=== PATIENT | female | born 1945 | race Caucasian/White ===

== ENCOUNTER 2020-04-08 11:34 | Outpatient (CLI) | payer MEDICARE | END 2020-04-08 23:59 | disposition home or self-care (01) | LOC: CFH 11:34 | PROVIDERS: ATTEND Family Medicine | DX: M81.0 Age-related osteoporosis without current pathological fracture (principal) | CPT/HCPCS: 77080 ==

== ENCOUNTER → 2020-07-03 | Outpatient (CLI) | payer MEDICARE ==
[~2020-07-03] MED LIST: ALEN70TA3 PO; CYCL5.5D EACHEYE
== END | disposition home or self-care (01) ==
LOC: STAR 15:06
PROVIDERS: ATTEND Obstetrics & Gynecology Gynecology
DX: Z01.812 Encounter for preprocedural laboratory examination (principal); N95.8 Other specified menopausal and perimenopausal disorders; Z20.828 Contact with and (suspected) exposure to other viral communicable diseases
CPT/HCPCS: 36415; 87635; 93005

== ENCOUNTER 2020-07-08 05:19 | Day surgery (SDC) | payer MEDICARE ==
[~2020-07-08] VITALS: Ht 157.5 cm; Wt 47.2 kg
[2020-07-08] MEDS ORDERED: BUPIVACAINE/PF 0.25% ONE (06:17)
[2020-07-08 06:19] VITALS: BP 156/89
[2020-07-08] MEDS ORDERED: CHLORHEXIDINE 15 ML UDC MM ONE (06:30)
[2020-07-08] MEDS ORDERED: LACTATED RINGERS 1,000 ML IV SCH (06:30)
[2020-07-08] MEDS ORDERED: FENTANYL PF 100 MCG/2ML ONE ×2 (06:38→07:58)
[2020-07-08] MEDS ORDERED: PROPOFOL 50 ML ONE (06:38)
[2020-07-08] MEDS ORDERED: MIDAZOLAM 1 MG/ML, 2ML ONE ×2 (06:38→09:17)
[2020-07-08] MEDS ORDERED: ACETAMINOPHEN 325 MG TABLET PO PRN (07:30)
[2020-07-08] MEDS ORDERED: LORazepam 2 MG/ML, 1ML IVPush PRN (07:30)
[2020-07-08] MEDS ORDERED: HALOPERIDOL 5 MG/ML IV PRN (07:30)
[2020-07-08] MEDS ORDERED: ONDANSETRON 2MG/ML, 2ML IVPush PRN (07:30)
[2020-07-08] MEDS ORDERED: FENTANYL PF 100 MCG/2ML IV PRN (07:30)
[2020-07-08] MEDS ORDERED: MEPERIDINE/PF 25MG/0.5ML IVPush PRN (07:30)
[2020-07-08] MEDS ORDERED: HYDROmorphone 1 MG/ML, 1ML INJ IVPush PRN (07:30)
[2020-07-08] MEDS ORDERED: OXYcodone 5 MG/5 ML ORAL.SOL UDC PO PRN (07:30)
[2020-07-08] MEDS ORDERED: PROMETHAZINE 12.5 MG SUPP PR PRN (07:30)
[2020-07-08] MEDS ORDERED: LABETALOL 5MG/ML, 20ML IV PRN (07:30)
[2020-07-08] MEDS ORDERED: hydrALAzine 20 MG/ML, 1ML IV PRN (07:30)
[2020-07-08] MEDS ORDERED: METHOCARBAMOL 1,000 MG in DEXTROSE 5% 100 ML IV PRN (07:30)
[2020-07-08] MEDS ORDERED: EPHEDRINE 50 MG/ML, 1ML IVPush PRN (07:30)
[2020-07-08] MEDS ORDERED: ACETAMINOPHEN 650 MG/20.3 ML UDC ONE (08:07)
[2020-07-08] MEDS ORDERED: ONDANSETRON 2MG/ML, 2ML ONE (08:08)
[2020-07-08] MEDS ORDERED: DEXAMETHASONE 4 MG/ML, 1ML ONE (08:08)
== END 2020-07-08 10:10 | disposition home or self-care (01) ==
LOC: OUT 05:19
PROVIDERS: ATTEND Obstetrics & Gynecology Gynecology
DX: N95.0 Postmenopausal bleeding (principal); N88.2 Stricture and stenosis of cervix uteri; M81.0 Age-related osteoporosis without current pathological fracture; Z79.899 Other long term (current) drug therapy; Z72.89 Other problems related to lifestyle; Z87.891 Personal history of nicotine dependence; Z98.890 Other specified postprocedural states; Z83.3 Family history of diabetes mellitus
CPT/HCPCS: 58120; 88305; J2250; J2704; J3010; J7120; J1100; J2405